=== PATIENT | male | born 1990 | race Caucasian/White ===

== ENCOUNTER 2017-09-03 09:19 | Emergency (ER) | payer SELFPAY ==
[~2017-09-03] VITALS: Ht 175.3 cm; Wt 86.2 kg
[~2017-09-03 09:19] MED LIST: AC500T PO; CEPH500C PO; CEPH500T PO; CLIN-62 PO; CLIN150V3 IJ; CLIN300C3 PO; CODE-54 PO; COGENTIN; HALDOL; HYDR1CAP2 PO; IBP200T PO; IBP800T PO; LEXAPRO; METH4TAB PO; NAPR-243 PO; SULF1TAB38 PO; TRAM50TA2 PO; TRM50T PO
--- OUTSIDE RECORDS SUMMARY | 2017-09-03 09:35 | XMS REPORT | Continuity of Care Document ---
Demographics Preferred Language Unknown Marital Status Unknown Orthodox Affiliation Unknown Race Unknown Ethnic Group Unknown Author Author [facility] Address Unknown Phone Unavailable Allergies Medications Problems Date Dx Coded Attending Type Code Diagnosis Diagnosed By 01/31/2011 296.33 MO DEPRESSIVE RECURRENT SEVERE W/O PSYCHOTIC BEHAVIOR 01/31/2011 309.81 AN PTSD 11/27/2012 786.2 cough Procedures Code [place] [id number] INFLUENZA A & B (IN-HOUSE) 11/27/2012 Results Encounters ACCT No. Visit Date/Time Discharge Status Pt. Type Provider Facility Loc./Unit Complaint [id number] 11/27/2012 15:28:00 11/27/2012 23: 59:59 CLS Outpatient [id number] 11/27/2012 16:33:14 RECURRING
[2017-09-03] MEDS ORDERED: TRAM-42 PO (09:53)
[2017-09-03] MEDS ORDERED: CEPH-507 PO (09:53)
--- NOTE | 2017-09-03 09:53 | ED General ---
General Chief Complaint: Dental Problems/Pain Stated Complaint: ABSCESS TOOTH Nursing Triage Note: c/o dental pain. Onset . Pain located to upper frontal area. Nursing Sepsis Screen: No Definite Risk Source of Information: Patient, Old Records Exam Limitations: No Limitations History of Present Illness Time Seen by Provider: 09:34 Initial Comments This 27-year-old young man presents to the emergency room with pain superior to his right upper incisor for about 5 days. He has long-standing severe dental disease. He has not yet seen a dentist for this specific problem. He has been taking ibuprofen, Tylenol, and Orajel. He believes he needs some antibiotics. He denies any fevers. Allergies and Home Medications Allergies Coded Allergies: Penicillins (Verified Allergy, 01/24/12) Home Medications Cephalexin 500 Mg Capsule, 500 MG PO QID, #40 Prescribed by: TIFFANIE MONTIEL on 09/03/17 0953 Tramadol HCl 50 Mg Tablet, 50 MG PO QID PRN for PAIN-MODERATE TO SEVERE, #20 Prescribed by: TIFFANIE MONTIEL on 09/03/17 0953 Constitutional: no symptoms reported EENTM: see HPI Respiratory: no symptoms reported Cardiovascular: no symptoms reported Gastrointestinal: no symptoms reported Genitourinary: no symptoms reported Musculoskeletal: no symptoms reported Skin: no symptoms reported Psychiatric/Neurological: No Symptoms Reported Hematologic/Lymphatic: No Symptoms Reported Past [id number] Hx Patient Social History Alcohol Use: Denies Use Recreational Drug Use: No Smoking Status: Unknown if Ever Smoked Recent Foreign Travel: No Contact w/Someone Who Travel: No Recent Infectious Disease Expo: No Recent Hopitalizations: No Immunizations Up To Date Tetanus Booster (TDap): Less than 5yrs Date of Influenza Vaccine: Nov 04, 2012 Surgeries History of Surgeries: Yes Surgeries: Orthopedic (finger surgery), Tonsillectomy Respiratory History of Respiratory Disorde: No Cardiovascular History of Cardiac Disorders: Yes Cardiac Disorders: Heart Murmur Neurological History of Neurological Disord: No Reproductive System Hx Reproductive Disorders: No Sexually Transmitted Disease: No Gastrointestinal History of Gastrointestinal Di: No Musculoskeletal History of Musculoskeletal Dis: No Endocrine History of Endocrine Disorders: No HEENT History of HEENT Disorders: Yes (severe dental disease) Cancer History of Cancer: No Psychosocial History of Psychiatric Problem: No Integumentary History of Skin or Integumenta: No Physical Exam Vital Signs Vital Sign - Last 12Hours 09/03/17 09:30 Temp 98.5 Pulse 72 Resp 16 B/P (MAP) 128/83 O2 Delivery Room Air Capillary Refill : Less Than 3 Seconds General Appearance: WD/WN, Mild Distress HEENT: PERRL/EOMI, TMs Normal, Normal ENT Inspection, Other (severe dental decay on multiple teeth. No overt abscess. Significant tenderness over the gingiva of the right upper incisor) Neck: Normal Inspection, Non Tender, Supple, No Lymphadenopathy (L), No Lymphadenopathy (R) Respiratory: Lungs Clear, Normal Breath Sounds, No Accessory Muscle Use, No Respiratory Distress Cardiovascular: Regular Rate, Rhythm, No Edema, No Murmur Neurologic/Psychiatric: Alert, Oriented x3, No Motor/Sensory Deficits, Normal Mood/Affect, percussion instructor II-XII Norm as Tested Skin: Normal Color, Warm/Dry Progress/Results/Core Measures Results/Orders Vital Signs/I&O Vital Sign - Last 12Hours 09/03/17 09:30 Temp 98.5 Pulse 72 Resp 16 B/P (MAP) 128/83 O2 Delivery Room Air Blood Pressure Mean: 98 Progress Note : Progress Note Patient has a penicillin allergy but he received a prescription for Keflex in the past. He does not recall having any problems with Keflex. Keflex was prescribed. Departure Impression Impression: Primary Impression: Pain, dental Additional Impression: Dental decay Disposition: 01 HOME, SELF-CARE Condition: Improved Departure-Patient Inst. Decision time for Depature: 09:45 Referrals: [facility] (PCP) Primary Care Physician MARIZA BUSTAMANTE (Family) Primary Care Physician Patient Instructions: Dental Pain (DC) Add. Discharge Instructions: Complete the entire course of antibiotics as prescribed. Please follow-up with a dentist as soon as possible. You may continue taking ibuprofen up to 600 mg every 6 hours as needed and Tylenol (acetaminophen) up to 1000 mg every 6 hours as needed for pain. Add Ultram (tramadol) for pain not controlled by over-the- counter medications. Return to care if you have worsening symptoms, especially if you develop recurrent fevers over 100. All discharge instructions reviewed with patient and/or family. Voiced understanding. Scripts Tramadol HCl (Ultram) 50 Mg Tablet 50 MG PO QID Y for PAIN-MODERATE TO SEVERE, #20 TAB Prov: TIFFANIE CHEN MD 09/03/17 Cephalexin (Keflex) 500 Mg Capsule 500 MG PO QID, #40 CAP Prov: TIFFANIE CHEN MD 09/03/17 TIFFANIE CHEN MD Sep 03, 2017 09:53
[2017-09-03 10:01] VITALS: BP 128/83
== END 2017-09-03 10:01 | disposition home or self-care (01) ==
LOC: EDUNIT# 09:19 → ER 09:22
DX: K02.9 Dental caries, unspecified (principal); Z90.89 Acquired absence of other organs
CPT/HCPCS: 99282